=== PATIENT | male | born 1960 | race African-American/Black ===

== ENCOUNTER 2018-03-21 21:14 | Emergency (ER) | payer SELFPAY ==
[~2018-03-21] VITALS: Ht 175.3 cm; Wt 107.6 kg
[2018-03-21] MEDS ORDERED: ZYRTEC10 MG PO (21:52)
[2018-03-21 22:08] VITALS: BP 149/78
== END 2018-03-21 22:08 | disposition home or self-care (01) | DRG 125 ==
LOC: ED 21:14
DX: H10.13 Acute atopic conjunctivitis, bilateral (principal); J30.9 Allergic rhinitis, unspecified; I10 Essential (primary) hypertension

== ENCOUNTER 2020-03-05 | Emergency (ER) | payer BC ==
[~2020-03-05] MED LIST: ZYRTEC10 MG PO
[2020-03-05] MEDS ORDERED: BP MED (19:56)
[2020-03-05] MEDS ORDERED: VOLTAREN - GENE75 MG PO (20:35)
== END 2020-03-05 20:45 | disposition home or self-care (01) | DRG 563 ==
DX: S86.911A Strain of unspecified muscle(s) and tendon(s) at lower leg level, right leg, initial encounter (principal); I10 Essential (primary) hypertension; X58.XXXA Exposure to other specified factors, initial encounter